=== PATIENT | male | born 1945 | race Hispanic/Latino ===

== ENCOUNTER → 2020-05-05 | Outpatient (CLI) | payer OTHER | END | disposition home or self-care (01) | LOC: SHCH 08:48 | PROVIDERS: ATTEND Internal Medicine Cardiovascular Disease | DX: I65.23 Occlusion and stenosis of bilateral carotid arteries (principal); R07.9 Chest pain, unspecified | CPT/HCPCS: 93306; 93356; 93880 ==

== ENCOUNTER → 2021-09-13 | Outpatient (CLI) | payer OTHER | END | disposition home or self-care (01) | LOC: LAB 08:24 | PROVIDERS: ATTEND Physician Assistant | DX: I10 Essential (primary) hypertension (principal) | CPT/HCPCS: 36415; 80048 ==

== ENCOUNTER 2022-02-06 15:00 | Inpatient (IN) | payer OTHER ==
[2022-02-05 22:30] VITALS: BP 155/83
[~2022-02-06] VITALS: Ht 165.1 cm; Wt 72.6 kg
[2022-02-06 15:59] LABS: BASOPHILS % (AUTO) 0.7 % (0.0-5.0); EOSINOPHILS % (AUTO) 1.2 % (0.0-8.0); HEMATOCRIT 32.1 % (42-54); LYMPHOCYTES % (AUTO) 46.1 % (21.0-51.0); MEAN CORPUSCULAR HEMOGLOBIN 31.4 pg (27.0-33.0); MEAN CORPUSCULAR HGB CONC 35.2 g/dL (32.0-36.0); MEAN CORPUSCULAR VOLUME 89.2 fL (79-99); MONOCYTES % (AUTO) 11.7 % (3.0-13.0); NEUTROPHILS % (AUTO) 39.8 % (40.0-77.0); PLATELET COUNT (AUTO) 273 K/uL (130-400); RED CELL DISTRIBUTION WIDTH 12.9 % (11.0-15.5); WHITE BLOOD COUNT (AUTO) 8.7 K/uL (4.8-10.8)
[2022-02-06 16:06] LABS: APPEARANCE,URINE CLEAR (CLEAR); BILIRUBIN,URINE NEGATIVE (NEGATIVE); COLOR,URINE LIGHT-YELLOW (YELLOW); GLUCOSE, URINE (UA) NEGATIVE (NEGATIVE); KETONES,URINE NEGATIVE (NEGATIVE); LEUKOCYTE ESTERASE ,URINE NEGATIVE Leu/uL (NEGATIVE); NITRATE,URINE NEGATIVE (NEGATIVE); OCCULT BLOOD,URINE NEGATIVE (NEGATIVE); PROTEIN,URINE NEGATIVE (NEGATIVE); UROBILINOGEN,URINE 0.2 mg/dL (0.2-1.0)
[2022-02-06 16:06] LABS: CREATININE 1.4 mg/dL (0.5-1.5); POTASSIUM 3.8 mmol/L (3.5-5.1)
[2022-02-06 16:17] LABS: ALBUMIN 3.7 g/dL (3.5-5.0); TOTAL PROTEIN, SERUM 7.2 g/dL (6.0-8.3)
[2022-02-06] MEDS ORDERED: CLONIDINE HCL 0.1 MG TABLET PO PRN (19:30)
[2022-02-06] MEDS ORDERED: HYDRALAZINE 20MG/ML VIAL IV PRN (19:30)
[2022-02-06] MEDS ORDERED: ASPIRIN 325MG TAB PO ONE (19:30)
[2022-02-06] MEDS: NITROGLYCERIN 1GM OINT 1 INCH/1GM TD SCH (19:30)
[2022-02-06] MEDS ORDERED: HYDROCODONE/ACETAMINOPHEN 5/325 MG TAB PO PRN (19:30)
[2022-02-06] MEDS ORDERED: ONDANSETRON 4MG INJ IVP PRN (19:30)
[2022-02-06] MEDS ORDERED: ACETAMINOPHEN 325 MG TAB PO PRN (19:30)
[2022-02-06] MEDS: 0.9%NACL 1000ML 1,000 ML IV SCH (20:04)
[2022-02-06] MEDS: FAMOTIDINE 20MG TAB PO SCH (20:06)
[2022-02-06] MEDS: METOPROLOL TARTRATE 25 MG TAB PO SCH (20:06)
[2022-02-06] MEDS: SIMVASTATIN 20 MG TABLET PO SCH (20:06)
[2022-02-06] MEDS: INSULIN HUMULIN R 100 UNIT/ML 3ML SQ SCH (20:22)
[2022-02-06 21:00] VITALS: BP 117/65
[2022-02-06] MEDS ORDERED: IOHEXOL 350 MG/ML 100ML INFUS..BTL IV ONE (21:18)
[2022-02-06] MEDS ORDERED: NITROGLYCERIN 0.4 MG SL TAB SL PRN (23:30)
[2022-02-07 00:11] VITALS: BP 117/65
[2022-02-07] MEDS: NITROGLYCERIN 1GM OINT 1 INCH/1GM TD SCH ×3 (03:20→21:27)
[2022-02-07] MEDS: 0.9%NACL 1000ML 1,000 ML IV SCH (03:22)
[2022-02-07 04:36] VITALS: BP 90/56
[2022-02-07 07:00] VITALS: BP 117/62
[2022-02-07 07:13] LABS: HEMATOCRIT 30.8 % (42-54); MEAN CORPUSCULAR HEMOGLOBIN 31.6 pg (27.0-33.0); MEAN CORPUSCULAR HGB CONC 35.4 g/dL (32.0-36.0); MEAN CORPUSCULAR VOLUME 89.3 fL (79-99); RED BLOOD CELL COUNT(AUTO) 3.45 MIL/uL (4.50-6.20); RED CELL DISTRIBUTION WIDTH 12.9 % (11.0-15.5); WHITE BLOOD COUNT (AUTO) 5.9 K/uL (4.8-10.8)
[2022-02-07 07:29] LABS: MAGNESIUM 1.6 mg/dL (1.80-2.40); PHOSPHORUS 4.3 mg/dL (2.5-4.9); POTASSIUM 3.8 mmol/L (3.5-5.1)
[2022-02-07] MEDS: INSULIN HUMULIN R 100 UNIT/ML 3ML SQ SCH ×4 (07:30→21:00)
[2022-02-07] MEDS ORDERED: MAGNESIUM 2GM PREMIX 50ML 50 ML IV PRN (09:00)
[2022-02-07] MEDS ORDERED: LIDOCAINE HCL-MPF 1% 2ML VIAL IV PRN ×2 (09:00)
[2022-02-07] MEDS ORDERED: POTASSIUM CHLORIDE 20MEQ/100ML 100 ML IV PRN ×2 (09:00)
[2022-02-07] MEDS ORDERED: DEXTROSE 50%-WATER 50 ML DISP.SYRIN IV PRN (09:00)
[2022-02-07] MEDS ORDERED: POTASSIUM CHLORIDE 10% ELIXIR 20 MEQ/15 ML UDCUP PO PRN (09:00)
[2022-02-07] MEDS ORDERED: GLUCAGON 1MG KIT 1 MG ML IM PRN (09:00)
[2022-02-07] MEDS: METOPROLOL TARTRATE 25 MG TAB PO SCH ×2 (09:00→21:27)
[2022-02-07] MEDS ORDERED: MAGNESIUM 2GM PREMIX 50ML 50 ML IV ONE (09:02)
[2022-02-07] MEDS: ENOXAPARIN SODIUM 40 MG/0.4 ML SYRINGE SQ SCH (09:56)
[2022-02-07] MEDS: ASPIRIN 81MG CHEW TAB PO SCH (09:57)
[2022-02-07 11:00] VITALS: BP 120/62
[2022-02-07 16:00] VITALS: BP 106/56
[2022-02-07 19:30] VITALS: BP 126/61
[2022-02-07] MEDS: FAMOTIDINE 20MG TAB PO SCH (21:27)
[2022-02-07] MEDS: SIMVASTATIN 20 MG TABLET PO SCH (21:27)
[2022-02-08] VITALS (7 sets, daily range): BP systolic 101–135; BP diastolic 57–93
[2022-02-08] MEDS: NITROGLYCERIN 1GM OINT 1 INCH/1GM TD SCH (03:56)
[2022-02-08] MEDS: INSULIN HUMULIN R 100 UNIT/ML 3ML SQ SCH ×4 (06:37→21:00)
[2022-02-08] MEDS ORDERED: LEVOFLOXACIN 500 MG TABLET PO SCH (09:00)
[2022-02-08] MEDS: ASPIRIN 81MG CHEW TAB PO SCH (09:00)
[2022-02-08] MEDS: ENOXAPARIN SODIUM 40 MG/0.4 ML SYRINGE SQ SCH (09:00)
[2022-02-08] MEDS: METOPROLOL TARTRATE 25 MG TAB PO SCH ×2 (09:45→21:20)
[2022-02-08] MEDS ORDERED: NITROGLYCERIN 1GM OINT 1 INCH/1GM TD PRN (12:00)
[2022-02-08] MEDS ORDERED: PROPOFOL 10 MG/ML 20ML VIAL IV ONE ×2 (13:52→13:53)
[2022-02-08] MEDS: FAMOTIDINE 20MG TAB PO SCH (21:20)
[2022-02-08] MEDS: SIMVASTATIN 20 MG TABLET PO SCH (21:20)
[2022-02-09 03:25] VITALS: BP 113/59
[2022-02-09 03:54] LABS: BASOPHILS % (AUTO) 0.7 % (0.0-5.0); EOSINOPHILS % (AUTO) 1.9 % (0.0-8.0); HEMATOCRIT 31.2 % (42-54); LYMPHOCYTES % (AUTO) 32.8 % (21.0-51.0); MEAN CORPUSCULAR HEMOGLOBIN 31.2 pg (27.0-33.0); MEAN CORPUSCULAR HGB CONC 34.3 g/dL (32.0-36.0); NEUTROPHILS % (AUTO) 51.9 % (40.0-77.0); PLATELET COUNT (AUTO) 240 K/uL (130-400); RED BLOOD CELL COUNT(AUTO) 3.43 MIL/uL (4.50-6.20); RED CELL DISTRIBUTION WIDTH 12.9 % (11.0-15.5); WHITE BLOOD COUNT (AUTO) 7.3 K/uL (4.8-10.8)
[2022-02-09 04:20] LABS: ALBUMIN 3.1 g/dL (3.5-5.0); MAGNESIUM 1.7 mg/dL (1.80-2.40); POTASSIUM 4.1 mmol/L (3.5-5.1); TOTAL PROTEIN, SERUM 6.5 g/dL (6.0-8.3)
[2022-02-09] MEDS: INSULIN HUMULIN R 100 UNIT/ML 3ML SQ SCH ×4 (06:21→21:00)
[2022-02-09 08:00] VITALS: BP_SYST 111; BP_SYST 122; BP_SYST 128; BP_DIAS 59; BP_DIAS 68; BP_DIAS 71
[2022-02-09] MEDS: ENOXAPARIN SODIUM 40 MG/0.4 ML SYRINGE SQ SCH (08:45)
[2022-02-09] MEDS: METOPROLOL TARTRATE 25 MG TAB PO SCH ×2 (08:45→21:04)
[2022-02-09] MEDS: ASPIRIN 81MG CHEW TAB PO SCH (08:45)
[2022-02-09] MEDS ORDERED: DIATR MEGLU/DIATRIZOATE SODIUM 30 ML BOTTLE ONE (11:28)
[2022-02-09 16:07] VITALS: BP 113/64
[2022-02-09 19:27] VITALS: BP 120/67
[2022-02-09] MEDS: FAMOTIDINE 20MG TAB PO SCH (21:03)
[2022-02-09] MEDS: SIMVASTATIN 20 MG TABLET PO SCH (21:03)
[2022-02-10] VITALS (7 sets, daily range): BP systolic 92–128; BP diastolic 49–71
[2022-02-10 03:32] LABS: BASOPHILS % (AUTO) 0.8 % (0.0-5.0); EOSINOPHILS % (AUTO) 1.7 % (0.0-8.0); LYMPHOCYTES % (AUTO) 29.5 % (21.0-51.0); MEAN CORPUSCULAR HEMOGLOBIN 30.9 pg (27.0-33.0); MEAN CORPUSCULAR HGB CONC 34.5 g/dL (32.0-36.0); MEAN CORPUSCULAR VOLUME 89.6 fL (79-99); MONOCYTES % (AUTO) 13.4 % (3.0-13.0); NEUTROPHILS % (AUTO) 53.8 % (40.0-77.0); PLATELET COUNT (AUTO) 236 K/uL (130-400); RED BLOOD CELL COUNT(AUTO) 3.46 MIL/uL (4.50-6.20)
[2022-02-10 03:57] LABS: ALBUMIN 3.1 g/dL (3.5-5.0); POTASSIUM 3.9 mmol/L (3.5-5.1); TOTAL PROTEIN, SERUM 5.9 g/dL (6.0-8.3)
[2022-02-10] MEDS: INSULIN HUMULIN R 100 UNIT/ML 3ML SQ SCH ×4 (06:46→21:05)
[2022-02-10] MEDS ORDERED: REGADENOSON 0.4 MG/5 ML PF SYG IVP SCH (09:30)
[2022-02-10 09:51] LABS: HEMOGLOBIN A1C 9.1 % (4.0-6.0)
[2022-02-10] MEDS: METOPROLOL TARTRATE 25 MG TAB PO SCH ×2 (09:52→21:04)
[2022-02-10] MEDS: ASPIRIN 81MG CHEW TAB PO SCH (09:53)
[2022-02-10] MEDS ORDERED: NITROGLYCERIN 1GM OINT 1 INCH/1GM TD PRN (10:00)
[2022-02-10] MEDS: FAMOTIDINE 20MG TAB PO SCH (21:03)
[2022-02-10] MEDS: SIMVASTATIN 20 MG TABLET PO SCH (21:04)
[2022-02-10] MEDS: APIXABAN 5 MG TABLET PO SCH (21:04)
[2022-02-11 03:41] VITALS: BP 104/63
[2022-02-11] MEDS: INSULIN HUMULIN R 100 UNIT/ML 3ML SQ SCH ×4 (06:21→21:06)
[2022-02-11 06:40] VITALS: BP 102/58
[2022-02-11] MEDS ORDERED: REGADENOSON 0.4 MG/5 ML PF SYG IVP SCH (07:30)
[2022-02-11] MEDS: ASPIRIN 81MG CHEW TAB PO SCH (08:55)
[2022-02-11] MEDS: METOPROLOL TARTRATE 25 MG TAB PO SCH ×2 (08:55→20:34)
[2022-02-11] MEDS: APIXABAN 5 MG TABLET PO SCH ×2 (08:56→20:34)
[2022-02-11 12:00] VITALS: BP 98/54
[2022-02-11 16:28] VITALS: BP 117/66
[2022-02-11 19:21] VITALS: BP 127/60
[2022-02-11] MEDS: SIMVASTATIN 20 MG TABLET PO SCH (20:34)
[2022-02-11] MEDS: ISOSORBIDE MONONITRATE 20 MG TABLET PO SCH (20:34)
[2022-02-11] MEDS: FAMOTIDINE 20MG TAB PO SCH (20:34)
[2022-02-12 00:21] VITALS: BP 98/55
[2022-02-12 03:27] VITALS: BP 107/51
[2022-02-12 04:29] LABS: BASOPHILS % (AUTO) 0.5 % (0.0-5.0); EOSINOPHILS % (AUTO) 2.6 % (0.0-8.0); HEMATOCRIT 27.9 % (42-54); LYMPHOCYTES % (AUTO) 34.8 % (21.0-51.0); MEAN CORPUSCULAR HEMOGLOBIN 31.2 pg (27.0-33.0); MEAN CORPUSCULAR HGB CONC 34.8 g/dL (32.0-36.0); MEAN CORPUSCULAR VOLUME 89.7 fL (79-99); MONOCYTES % (AUTO) 11.1 % (3.0-13.0); NEUTROPHILS % (AUTO) 50.5 % (40.0-77.0); PLATELET COUNT (AUTO) 204 K/uL (130-400); RED BLOOD CELL COUNT(AUTO) 3.11 MIL/uL (4.50-6.20); RED CELL DISTRIBUTION WIDTH 13.1 % (11.0-15.5); WHITE BLOOD COUNT (AUTO) 5.7 K/uL (4.8-10.8)
[2022-02-12 04:46] LABS: ALBUMIN 2.9 g/dL (3.5-5.0); POTASSIUM 3.4 mmol/L (3.5-5.1); TOTAL PROTEIN, SERUM 5.9 g/dL (6.0-8.3)
[2022-02-12] MEDS: KCL 20 MEQ ERTAB PO PRN ×2 (05:37→08:25)
[2022-02-12] MEDS: INSULIN HUMULIN R 100 UNIT/ML 3ML SQ SCH ×3 (06:26→16:30)
[2022-02-12 07:00] VITALS: BP 101/59
[2022-02-12] MEDS: ASPIRIN 81MG CHEW TAB PO SCH (08:23)
[2022-02-12] MEDS: METOPROLOL TARTRATE 25 MG TAB PO SCH (08:23)
[2022-02-12] MEDS: APIXABAN 5 MG TABLET PO SCH (08:23)
[2022-02-12] MEDS: ISOSORBIDE MONONITRATE 20 MG TABLET PO SCH (08:24)
[2022-02-12 11:00] VITALS: BP 111/73
[2022-02-12] MEDS ORDERED: METO25 PO (12:40)
[2022-02-12] MEDS ORDERED: APIX5TAB PO (12:40)
[2022-02-12] MEDS ORDERED: SIMV-43 PO (12:40)
[2022-02-12 16:00] VITALS: BP 118/80
[2022-02-12] MEDS ORDERED: FLU VACC QS2022-23(6MOS UP)/PF 60 MCG/0.5 ML ML IM ONE (17:00)
== END 2022-02-12 17:00 | disposition home or self-care (01) | DRG 392 ==
LOC: EDH 15:00 → EDHIP 19:29 → OBSVTOIN 19:29 → 2AH 22:32
PROVIDERS: ADMIT Internal Medicine Critical Care Medicine; ATTEND Internal Medicine Critical Care Medicine
PROC: 0DB68ZX Excision of Stomach, Via Natural or Artificial Opening Endoscopic, Diagnostic (ICD-10-PCS; principal; 2022-02-08)
PROC: 3E0234Z Introduction of Serum, Toxoid and Vaccine into Muscle, Percutaneous Approach (ICD-10-PCS; 2022-02-12)
DX: K21.9 Gastro-esophageal reflux disease without esophagitis (principal); I50.30 Unspecified diastolic (congestive) heart failure; I48.0 Paroxysmal atrial fibrillation; Z20.822 Contact with and (suspected) exposure to COVID-19; E11.65 Type 2 diabetes mellitus with hyperglycemia; I25.10 Atherosclerotic heart disease of native coronary artery without angina pectoris; E86.0 Dehydration; E11.43 Type 2 diabetes mellitus with diabetic autonomic (poly)neuropathy; K31.84 Gastroparesis; I11.0 Hypertensive heart disease with heart failure; J84.112 Idiopathic pulmonary fibrosis; D64.9 Anemia, unspecified; E78.5 Hyperlipidemia, unspecified; K44.9 Diaphragmatic hernia without obstruction or gangrene; Z79.01 Long term (current) use of anticoagulants; Z82.49 Family history of ischemic heart disease and other diseases of the circulatory system; Z23 Encounter for immunization
CPT/HCPCS: 36415; 43239; 71045; 71275; 74240; 78452; 80048; 80053; 80061; 81003; 82550; 82948; 83036; 83690; 83735; 83874; 83880; 84100; 84484; 85025; 85027; 85378; 87635; 93005; 93017; 93306; 93356; 93880; 96374; A4606; A9500; G0378; J1650; J1815; J2704; J2785; J3475; J7030; Q2035; Q9963; Q9967

== ENCOUNTER → 2022-02-24 | Outpatient (CLI) | payer OTHER ==
[~2022-02-24] MED LIST: APIX5TAB PO; METO25 PO; SIMV-43 PO
[2022-02-24 12:25] LABS: BASOPHILS % (AUTO) 0.6 % (0.0-5.0); EOSINOPHILS % (AUTO) 2.8 % (0.0-8.0); HEMATOCRIT 33.1 % (42-54); LYMPHOCYTES % (AUTO) 38.7 % (21.0-51.0); MEAN CORPUSCULAR HEMOGLOBIN 30.8 pg (27.0-33.0); MEAN CORPUSCULAR HGB CONC 34.1 g/dL (32.0-36.0); MEAN CORPUSCULAR VOLUME 90.2 fL (79-99); MONOCYTES % (AUTO) 10.6 % (3.0-13.0); NEUTROPHILS % (AUTO) 46.6 % (40.0-77.0); PLATELET COUNT (AUTO) 208 K/uL (130-400); RED BLOOD CELL COUNT(AUTO) 3.67 MIL/uL (4.50-6.20); RED CELL DISTRIBUTION WIDTH 13.2 % (11.0-15.5); WHITE BLOOD COUNT (AUTO) 8.8 K/uL (4.8-10.8)
[2022-02-24 12:37] LABS: ALBUMIN 3.5 g/dL (3.5-5.0); POTASSIUM 3.9 mmol/L (3.5-5.1); TOTAL PROTEIN, SERUM 7.3 g/dL (6.0-8.3)
== END | disposition home or self-care (01) ==
LOC: LAB 08:13
PROVIDERS: ATTEND Physician Assistant
DX: I25.10 Atherosclerotic heart disease of native coronary artery without angina pectoris (principal); I48.0 Paroxysmal atrial fibrillation
CPT/HCPCS: 36415; 80053; 85025

== ENCOUNTER → 2022-09-16 | Outpatient (CLI) | payer OTHER ==
[~2022-09-16] MED LIST changes: +ALLO100T PO; +FAMO40TA7 PO; +LISI1TAB51 PO; +METF-446 PO; +PIOG15TA66 PO; -SIMV-43 PO; +TAMS-1 PO
[2022-09-16 15:52] LABS: ALBUMIN 3.6 g/dL (3.5-5.0); CREATININE 1.2 mg/dL (0.5-1.5); POTASSIUM 3.9 mmol/L (3.5-5.1); TOTAL PROTEIN, SERUM 7.2 g/dL (6.0-8.3)
== END | disposition home or self-care (01) ==
LOC: LAB 13:21
PROVIDERS: ATTEND Physician Assistant
DX: I48.0 Paroxysmal atrial fibrillation (principal)
CPT/HCPCS: 36415; 80053